=== PATIENT | female | born 1975 | race Hispanic/Latino ===

== ENCOUNTER 2020-11-23 19:28 | Emergency (ER) | payer OTHER, SELFPAY ==
[2020-11-23 20:03] VITALS: BP 113/71; PULSE 92; RESP 18; TEMP 36.3; O2SAT 97
--- NOTE | 2020-11-23 21:20 | ED.URI ---
HPI - URI/Sore Throat General Chief Complaint: Upper Respiratory Infection Stated Complaint: wants to be tested for COVID Time Seen by Provider: 11/23/20 20:34 Source: patient Mode of arrival: ambulatory Limitations: no limitations History of Present Illness HPI Narrative: Patient is a 45 year old female who presents requesting Covid testing. Patient reports cough and rhinorrhea x 1 day. She reports positive exposure to Covid 2 days ago while at family gathering. She denies chest pain, denies shortness of breath. Patient reports she is not vaccinated for Covid at this time. MD elicited complaint: cough and rhinorrhea Review of Systems Review of Systems: Narrative: CONSTITUTIONAL: Denies fever, chills, or sweats. EYES: Denies visual changes, redness, or discharge. ENT: Reports rhinorrhea CARDIOVASCULAR: Denies chest pain, palpitations, or edema. RESPIRATORY: Reports cough, denies shortness of breath GASTROINTESTINAL: Denies abdominal pain, nausea, vomiting, or diarrhea. GENITOURINARY: Denies dysuria or hematuria. SKIN: Denies rash or itching. MUSCULOSKELETAL: Denies back pain, joint pain, or myalgia. NEUROLOGIC: Denies headache, numbness, dizziness, or weakness. PSYCHIATRIC: Denies anxiety or depression. [facility] Past Medical History Medical History No significant past medical history Surgical History Surgical History H/O: Family History Family History (Updated 11/23/20 @ 21:23 by JUNIOR Arita) Other No significant family history Social History Social History (Updated 11/23/20 @ 21:23 by JUNIOR Arita) Smoking status: Current every day smoker Tobacco type: cigarettes Alcohol intake: never Substance use: never Living arrangements: with family Comments At the time of signature, I have reviewed and agree with nursing past medical, surgical, social, and family history unless otherwise noted. Please see nursing chart for further information. There is no relevant family history pertinent to the presenting complaint. Exam Narrative: Exam Narrative: GENERAL: Well-appearing, well-nourished, and in no acute distress. HEAD: Normocephalic, atraumatic. EYES: EOMI. No redness or drainage. Conjunctiva are normal. ENT: Mucous membranes pink and moist. Nares clear. No rhinorrhea. Throat normal. Uvula midline. CHEST: No respiratory distress. Clear to auscultation. HEART: Regular rate and rhythm. No murmur appreciated. Normal peripheral pulses. EXTREMITIES: Normal range of motion. No edema. SKIN: Warm, dry, no rash. NEURO: No focal deficits. Alert and oriented x3. Gait steady. PSYCH: Normal affect. No signs of depression or anxiety. Course Vital Signs Vital signs: Vital Signs Temperature 36.3 C L 11/23/20 20:03 Pulse Rate 92 11/23/20 20:03 Respiratory Rate 18 11/23/20 20:03 Blood Pressure 113/71 11/23/20 20:03 Pulse Oximetry 97 11/23/20 20:03 Temperature 36.3 C L 11/23/20 20:03 Pulse Rate 92 11/23/20 20:03 Respiratory Rate 18 11/23/20 20:03 Blood Pressure 113/71 11/23/20 20:03 Pulse Oximetry 97 11/23/20 20:03 Reviewed MDM - URI/Sore Throat MDM Narrative Medical decision making narrative: Covid PCR sent at this time. Discussed with patient when results will be received as well as quarantine and follow-up. Patient is aware of quarantine and will follow up with referred PCP on Thursday. Patient is stable for discharge to home with outpatient follow-up as needed. Differential Diagnosis Differential diagnosis: Likely upper respiratory infection, sinusitis, viral infection, bronchitis, pharyngitis and other (Covid) Lab Data Labs: Lab Results 11/23/20 Range/Units 21:03 SARS-CoV-2 RNA (RT-PCR) Pending Critical Care Time Critical Care Time Critical Care Time: No Discharge Plan Discharge Clinical Impression: Encounter
[2020-11-24 19:55] LABS: SARS-CoV-2 RNA PCR Negative
== END 2020-11-23 21:39 | disposition home or self-care (01) ==
PROVIDERS: Emergency Provider Nurse Practitioner
DX: R05 Cough (principal); J34.89 Other specified disorders of nose and nasal sinuses; Z20.822 Contact with and (suspected) exposure to COVID-19
CPT/HCPCS: 99283; C9803; U0003; U0005

== ENCOUNTER 2021-02-11 21:15 | Emergency (ER) | payer OTHER, SELFPAY ==
[2021-02-11 21:17] VITALS: BP 129/74; PULSE 86; RESP 16; TEMP 36.6; O2SAT 98
[2021-02-11 23:13] LABS: Add Urine Microscopic? NO; Appearance Urine Clear (Clear); Bilirubin Urine Negative (Negative); Blood Urine Negative (Negative); Color Urine Yellow (Yellow); Glucose Urine UA Negative (Negative); Ketones Urine Negative (Negative); Leukocyte Esterase Ur Negative LEU/UL (Negative); Nitrate Urine Negative (Negative); Protein Urine Negative (Negative); Specific Grav Ur 1.012 (1.001-1.035); Urobilinogen Urine Negative mg/dL (<2.0)
--- NOTE | 2021-02-12 00:33 | ED.FEMALEGU ---
HPI - Female Genitourinary General Chief complaint: Urogenital-Female Stated complaint: i think i have a uti, earache and blisters on tong Time Seen by Provider: 02/12/21 00:04 Source: patient Mode of arrival: ambulatory Limitations: no limitations History of Present Illness HPI Narrative: Patient is 45 years old white female complaining of smelly urine for the last 24 hours also noticed some blisters on her tongue. Patient denies any fever, chills, nausea, vomiting, abdominal pain, back pain, headache, vaginal bleeding or discharge, urinary frequency or urgency or burning sensation Review of Systems Review of Systems: CONSTITUTIONAL: Denies fever, chills, or sweats. EYES: Denies visual changes, redness, or discharge. ENT: Denies rhinorrhea, congestion, sore throat, or otalgia. CARDIOVASCULAR: Denies chest pain, palpitations, or edema. RESPIRATORY: Denies cough or dyspnea. GASTROINTESTINAL: Denies abdominal pain, nausea, vomiting, or diarrhea. GENITOURINARY: Denies dysuria or hematuria. SKIN: Denies rash or itching. MUSCULOSKELETAL: Denies back pain, joint pain, or myalgia. NEUROLOGIC: Denies headache, numbness, or weakness. PSYCHIATRIC: Denies anxiety or depression. PMFSH Past Medical History Medical History No significant past medical history Surgical History Surgical History H/O: Family History Family History Other No significant family history Social History Social History Smoking status: Current every day smoker Tobacco type: cigarettes Alcohol intake: never Substance use: never Gender identity (if verbalized by the patient): Female Exam Narrative: General appearance: Well-developed, well-nourished Skin: Normal color Head: Normocephalic, nontraumatic Eyes: Clear conjunctiva ENT: Oropharynx normal, ears normal, nose normal, 2 blisters on the top of the thigh, 2 mm each. No lymphadenopathy, no oropharyngeal erythema or discharge Neck: Supple, nontender Chest and respiratory: Airway patent, no respiratory distress, no accessory muscle use Heart: Regular rate/rhythm Abdomen: Soft, nontender, no organomegaly, quiet bowel sounds Vascular: Normal peripheral pulses, normal capillary refill. Musculoskeletal: Normal range of motion, nontender back Neurologic: Alert and oriented ?3, [employer] is normal as tested, no gross motor deficit Course Course Emergency Course: Stable Vital Signs Vital signs: Vital Signs Temperature 36.6 C 02/11/21 21:17 Pulse Rate 86 02/11/21 21:17 Respiratory Rate 16 02/11/21 21:17 Blood Pressure 129/74 02/11/21 21:17 Pulse Oximetry 98 02/11/21 21:17 Temperature 36.6 C 02/11/21 21:17 Pulse Rate 86 02/11/21 21:17 Respiratory Rate 16 02/11/21 21:17 Blood Pressure 129/74 02/11/21 21:17 Pulse Oximetry 98 02/11/21 21:17 MDM - Female Genitourinary MDM Narrative Medical decision making narrative: Patient presents with smelly urine. UTI is my concern. Patient denies any vaginal bleeding or discharge. Urine analysis showed no abnormalities. Patient is obese smelly urine could be related to poor hygienic condition. Lab Data Labs: Lab Results 02/11/21 Range/Units 23:00 Urine Color Yellow (Yellow) Urine Appearance Clear (Clear) Urine pH 6.0 (5.0-9.0) Ur Specific [place] 1.012 (1.001-1.035) Urine Protein Negative (Negative) mg/dL Urine Glucose (UA) Negative (Negative) mg/dL Urine Ketones Negative (Negative) mg/dL Ur Blood (Man
[2021-02-12 00:49] VITALS: BP 122/78; PULSE 78; RESP 18; O2SAT 98
--- NOTE | 2021-03-02 20:39 | PC.NURSE ---
LATE ENTRY This note is being entered to document information to the patient's record. The following information was omitted on [02-11-2022], by [DORON Davey]. Preg test completed. Preg test was negative.
== END 2021-02-12 00:49 | disposition home or self-care (01) ==
PROVIDERS: Emergency Provider Emergency Medicine
DX: R82.998 Other abnormal findings in urine (principal); F17.210 Nicotine dependence, cigarettes, uncomplicated
CPT/HCPCS: 81003; 81025; 99283

== ENCOUNTER 2021-04-06 20:07 | Emergency (ER) | payer OTHER, SELFPAY ==
[2021-04-06 20:48] VITALS: BP 125/81; PULSE 86; RESP 17; TEMP 36.6; O2SAT 100
--- NOTE | 2021-04-06 22:32 | ED.SKABFB ---
HPI - Skin/Abscess/Foreign Bdy General Chief complaint: Skin/Abscess/Foreign Body Stated complaint: Yeast infection? Time Seen by Provider: 04/06/21 21:08 History of Present Illness HPI narrative: Patient is a 45-year-old female who presents ER with drainage from her skin fold below her belly. She reports it was oozing over the last day and was malodorous. She has been keeping it clean today. No fever chills or sweats. No previous history of drainage in this area. No recent surgeries. Related Data Allergies Allergy/AdvReac Type Severity Reaction Status Date / Time meperidine [From Demerol] Allergy Itching Verified 04/06/21 20:53 morphine Allergy Anaphylactic Verified 04/06/21 20:53 Shock Review of Systems Constitutional: Constitutional: Denies chills, Denies fever(s) and Denies weakness Gastrointestinal: Gastrointestinal: Denies abdominal pain, Denies nausea and Denies vomiting Integumentary/Breasts: Skin/Breast: Reports erythema, Denies rash and Denies skin ulcer PMFSH Past Medical History Medical History No significant past medical history Surgical History Surgical History H/O: Family History Family History Other No significant family history Social History Social History Smoking status: Current every day smoker Tobacco type: cigarettes Alcohol intake: never Substance use: never Gender identity (if verbalized by the patient): Female Exam Narrative: GENERAL: Well-appearing, well-nourished, and in no acute distress. HEAD: Normocephalic, atraumatic. ABDOMEN: Soft, nontender, nondistended. EXTREMITIES: Normal range of motion. No edema. SKIN: Warm, dry, no rash. Area of interest is the right side of her lower abdominal skin fold and there is a small subcentimeter area per there is some skin breakdown. No surrounding cellulitis. No serous or purulent drainage. NEURO: No focal deficits. Alert and oriented x3. PSYCH: Normal mood and affect. Course Course Emergency Course: Suspect patient had a ruptured skin cyst or abscess or ingrown hair that is essentially resolved. Discussed she can apply triple antibiotic if need be. Vital Signs Vital signs: Vital Signs Temperature 97.8 F 04/06/21 20:48 Pulse Rate 86 04/06/21 20:48 Respiratory Rate 17 04/06/21 20:48 Blood Pressure 125/81 04/06/21 20:48 Pulse Oximetry 100 04/06/21 20:48 Temperature 97.8 F 04/06/21 20:48 Pulse Rate 86 04/06/21 20:48 Respiratory Rate 17 04/06/21 20:48 Blood Pressure 125/81 04/06/21 20:48 Pulse Oximetry 100 04/06/21 20:48 Discharge Plan Discharge Clinical Impression: Skin irritation Patient Disposition: Home, Self-Care Condition: Stable Additional Instructions: You may have had an ingrown hair or small cyst that spontaneously drained. There is no evidence of infection at this time but you may apply [id number] triple antibiotic for the next couple days to help prevent any secondary infection that could develop. Follow-up/Referrals: Yulissa Morales MD [Physician] - 1 Week PHYSICIAN,[facility] [Primary Care Provider] -
[2021-04-06 22:58] VITALS: BP 130/82; PULSE 74; RESP 18; O2SAT 99
== END 2021-04-06 22:59 | disposition home or self-care (01) ==
PROVIDERS: Emergency Provider Emergency Medicine
DX: L98.8 Other specified disorders of the skin and subcutaneous tissue (principal); F17.210 Nicotine dependence, cigarettes, uncomplicated
CPT/HCPCS: 99281

== ENCOUNTER 2021-11-09 03:20 | Emergency (ER) | payer OTHER, SELFPAY ==
[2021-11-09 03:33] VITALS: BP 118/83; PULSE 91; RESP 18; TEMP 36.6; O2SAT 98
[2021-11-09 04:40] VITALS: O2SAT 100
[2021-11-09] MEDS: AMOXICILLIN/CLAVULANATE K 875-125 MG TAB 1 TABLET PO (04:45)
--- NOTE | 2021-11-09 05:09 | ED.GENADULT ---
HPI - General Adult General Chief complaint: Upper Respiratory Infection Stated complaint: Sore throat, cough, earache Time Seen by Provider: 11/09/21 04:05 History of Present Illness HPI narrative: Patient is a 46-year-old female who presents to the emergency department with chief complaint of cough sore throat and right ear pain. Patient states that she has been feeling sick for the last day or 2 has not been vaccinated for COVID reports that her right ear is hurting and reports that her left ear she has crackling whenever she swallows. Patient states she is got a scratchy throat with that states is not improved by anything nor is it worsened by anything. Related Data Allergies Allergy/AdvReac Type Severity Reaction Status Date / Time meperidine [From Demerol] Allergy Itching Verified 04/06/21 20:53 morphine Allergy Anaphylactic Verified 04/06/21 20:53 Shock Review of Systems Review of Systems: A 10 system review of systems was completed on the patient and is negative except for what is stated in the HPI. Nursing and ancillary documentation was reviewed. PMFSH Past Medical History Medical History No significant past medical history Surgical History Surgical History H/O: Family History Family History Other No significant family history Social History Social History Smoking status: Current every day smoker Tobacco type: cigarettes Alcohol intake: never Substance use: never Gender identity (if verbalized by the patient): Female Exam Narrative: GENERAL: Well-appearing, well-nourished, and in no acute distress. HEAD: Normocephalic, atraumatic. EYES: PERRLA and EOMI. ENT: Nares clear, no rhinorrhea or epistaxis. Mucous membranes moist. There is erythema of the right membrane NECK: Supple. CHEST: Clear to auscultation. No respiratory distress. HEART: Regular rate and rhythm. No murmur heard. Normal peripheral pulses. ABDOMEN: Soft, nontender, nondistended, normal active bowel sounds. EXTREMITIES: Normal range of motion. No edema. SKIN: Warm, dry, no rash. NEURO: No focal deficits. Alert and oriented x3. PSYCH: Normal mood and affect. Course Vital Signs Vital signs: Vital Signs Temperature 36.6 C 11/09/21 03:33 Pulse Rate 91 11/09/21 03:33 Respiratory Rate 18 11/09/21 03:33 Blood Pressure 118/83 11/09/21 03:33 Pulse Oximetry 98 11/09/21 03:33 Temperature 36.6 C 11/09/21 03:33 Pulse Rate 91 11/09/21 03:33 Respiratory Rate 18 11/09/21 03:33 Blood Pressure 118/83 11/09/21 03:33 Pulse Oximetry 100 11/09/21 04:40 Medical Decision Making Vital Signs Vital Signs: Vital Signs Temperature 36.6 C 11/09/21 03:33 Pulse Rate 91 11/09/21 03:33 Respiratory Rate 18 11/09/21 03:33 Blood Pressure 118/83 11/09/21 03:33 Pulse Oximetry 98 11/09/21 03:33 Temperature 36.6 C 11/09/21 03:33 Pulse Rate 91 11/09/21 03:33 Respiratory Rate 18 11/09/21 03:33 Blood Pressure 118/83 11/09/21 03:33 Pulse Oximetry 100 11/09/21 04:40 Lab Data Labs: Lab Results 11/09/21 Range/Units 04:44 SARS-CoV-2 RNA (RT-PCR) Negative Influenza A Screen Negative Reference Range: Negative Influenza B Screen Negative Reference Range: Negative Discharge Plan Discharge Clinical Impression: Acute right otitis media Patient Disposition: Home, Self-Care Condition: Stable Instructions: Antibiotic Form, Ear Infection (ED) Prescriptions: New amoxicillin-pot clavulanate 875-125 mg tablet 1 tablet PO Q12H Qty: 20 RF: 0 benzonatate 200 mg ca
[2021-11-09 05:40] LABS: SARS-CoV-2 RNA PCR Negative
[2021-11-09 06:16] VITALS: BP 115/67; PULSE 87; RESP 18; O2SAT 100
== END 2021-11-09 06:16 | disposition home or self-care (01) ==
PROVIDERS: Emergency Provider Emergency Medicine
DX: H66.91 Otitis media, unspecified, right ear (principal); Z28.310 Unvaccinated for COVID-19; F17.210 Nicotine dependence, cigarettes, uncomplicated
CPT/HCPCS: 87804; 99283; A9270; C9803; U0003; U0005

== ENCOUNTER 2024-02-10 00:16 | Emergency (ER) | payer MEDICAID, SELFPAY ==
[2024-02-10 00:19] VITALS: BP 148/71; PULSE 87; RESP 20; TEMP 37; O2SAT 96
--- NOTE | 2024-02-10 00:59 | ED.GENADULT ---
HPI - General Adult General Chief complaint: Dental/Oral Stated complaint: ear pain Time Seen by Provider: 02/10/24 00:58 Source: patient Mode of arrival: ambulatory Limitations: no limitations History of Present Illness HPI narrative: this is a 48-year-old female who presents to the ED for chief complaint of right-sided dental pain for the past 24 hours. Reports that the pain radiates into the right ear and right side of the face. States that she has had an abscess to the gum that burst on its own. Endorses mild swelling to the right jaw. Denies trismus, drooling, fevers, chills, nausea, vomiting Related Data Allergies Allergy/AdvReac Type Severity Reaction Status Date / Time meperidine [From Demerol] Allergy Itching Verified 04/06/21 20:53 morphine Allergy Anaphylactic Verified 04/06/21 20:53 Shock Review of Systems Review of Systems: All systems as dictated in HPI PMFSH Past Medical History Medical History No significant past medical history Surgical History Surgical History H/O: Family History Family History Other No significant family history Social History Social History Smoking status: Current every day smoker Tobacco type: cigarettes Alcohol intake: never Substance use: never Living arrangements: with family Gender identity (if verbalized by the patient): Female Exam Narrative: GENERAL: Well-appearing, well-nourished, and in no acute distress. HEAD: Normocephalic, atraumatic. EYES: PERRLA and EOMI. ENT: Poor dentition throughout. No palpable or discrete abscess. Multiple caries noted no trismus or drooling. Nares clear, no rhinorrhea or epistaxis. Mucous membranes moist. Floor of the mouth intact. NECK: Supple. No adenopathy or masses. CHEST: No respiratory distress. Clear to auscultation. No wheezes rales or rhonchi HEART: Regular rate and rhythm. No murmur heard. Normal peripheral pulses. ABDOMEN: Soft, nontender, nondistended, normal active bowel sounds. MSK: Normal range of motion. No edema. SKIN: Warm, dry, no rash. NEURO: Alert and oriented x4. No focal deficits. PSYCH: Normal mood and affect. Course Vital Signs Vital signs: Vital Signs Temperature 98.6 F 02/10/24 00:19 Pulse Rate 87 02/10/24 00:19 Respiratory Rate 20 02/10/24 00:19 Blood Pressure 148/71 H 02/10/24 00:19 Pulse Oximetry 96 02/10/24 00:19 Oxygen Delivery Room Air 02/10/24 00:19 Temperature 98.6 F 02/10/24 00:19 Pulse Rate 87 02/10/24 00:19 Respiratory Rate 20 02/10/24 00:19 Blood Pressure 148/71 H 02/10/24 00:19 Pulse Oximetry 96 02/10/24 00:19 Oxygen Delivery Room Air 02/10/24 00:19 Medical Decision Making MDM Narrative Medical decision making narrative: This is a 48-year-old female who presents to the ED with chief complaint of right-sided dental pain. Vitals are normal. Exam shows mild swelling to the right side of the face. No trismus or red flag signs for deep space infection today. Symptoms and presentation consistent with the diffuse dental caries seen on exam. She probably has developing infection on the right side. Rx for clindamycin given. She is declining any further pain meds here. Dental referral given. Pt will be discharged in stable condition. Return precautions given and supportive measures discussed. Pt is understanding and agreeable with plan for discharge and follow-up with PCP. Vital Signs Vital Signs: Vital Signs Temperature 98.6 F 02/10/24 00:19 Pulse Rate 87 02/10/24 00:19 Respiratory Rate 20 02/10/24 00:19 Blood Pressure 148/71 H 02/10/24 00:19 Pulse Oximetry 96 02/10/24 00:19 Oxygen Delivery Room Air 02/10/24 00:19
[2024-02-10] MEDS: CLINDAMYCIN HCL 150 MG CAP 300 MG PO (01:19)
== END 2024-02-10 01:22 | disposition home or self-care (01) ==
PROVIDERS: Emergency Provider Physician Assistant
DX: K02.9 Dental caries, unspecified (principal); F17.210 Nicotine dependence, cigarettes, uncomplicated
CPT/HCPCS: 99283; A9270

== ENCOUNTER 2024-04-11 00:57 | Emergency (ER) | payer OTHER, SELFPAY ==
[2024-04-11 01:06] VITALS: BP 112/55; PULSE 94; RESP 18; TEMP 36.6; O2SAT 98
[2024-04-11 01:31] LABS: BEDSIDEPREGUCG Negative (Negative)
[2024-04-11 01:36] LABS: Add Urine Microscopic? NO; Appearance Urine Clear (Clear); Bilirubin Urine Negative (Negative); Blood Urine Negative (Negative); Color Urine Yellow (Yellow); Glucose Urine UA Negative (Negative); Ketones Urine Negative (Negative); Leukocyte Esterase Ur Negative LEU/UL (Negative); Nitrate Urine Negative (Negative); Protein Urine Negative (Negative); Specific Grav Ur 1.015 (1.001-1.035); pH Urine 6.5 (5.0-9.0)
--- NOTE | 2024-04-11 01:55 | ED.GENADULT ---
HPI - General Adult General Chief complaint: Urogenital-Female Stated complaint: I think I have a uti and both ears are infected Time Seen by Provider: 04/11/24 01:31 History of Present Illness HPI narrative: Patient 48-year-old female who presents emergency department with chief complaint of bilateral ear pain with the right being worse than the left patient reports she has a crackling sensation in her ears whenever she swallows and reports that she has had urinary frequency. Related Data Allergies Allergy/AdvReac Type Severity Reaction Status Date / Time meperidine [From Demerol] Allergy Itching Verified 04/06/21 20:53 morphine Allergy Anaphylactic Verified 04/06/21 20:53 Shock Review of Systems Review of Systems: A 10 system review of systems was completed on the patient and is negative except for what is stated in the HPI. Nursing and ancillary documentation was reviewed. PMFSH Past Medical History Medical History No significant past medical history Surgical History Surgical History H/O: Family History Family History Other No significant family history Social History Social History Smoking status: Current every day smoker Tobacco type: cigarettes Alcohol intake: never Substance use: never Living arrangements: with family Gender identity (if verbalized by the patient): Female Exam Narrative: GENERAL: Well-appearing, well-nourished, and in no acute distress. HEAD: Normocephalic, atraumatic. EYES: PERRLA and EOMI. ENT: Nares clear, no rhinorrhea or epistaxis. Mucous membranes moist. There is fluid behind the left tympanic membrane the right ear is erythematous and there appears to be an acute otitis media NECK: Supple. CHEST: Clear to auscultation. No respiratory distress. HEART: Regular rate and rhythm. No murmur heard. Normal peripheral pulses. ABDOMEN: Soft, nontender, nondistended, normal active bowel sounds. EXTREMITIES: Normal range of motion. No edema. SKIN: Warm, dry, no rash. NEURO: No focal deficits. Alert and oriented x3. PSYCH: Normal mood and affect. Course Vital Signs Vital signs: Vital Signs Temperature 36.6 C 04/11/24 01:06 Pulse Rate 94 04/11/24 01:06 Respiratory Rate 18 04/11/24 01:06 Blood Pressure 112/55 L 04/11/24 01:06 Pulse Oximetry 98 04/11/24 01:06 Oxygen Delivery Room Air 04/11/24 01:06 Temperature 36.6 C 04/11/24 01:06 Pulse Rate 94 04/11/24 01:06 Respiratory Rate 18 04/11/24 01:06 Blood Pressure 112/55 L 04/11/24 01:06 Pulse Oximetry 98 04/11/24 01:06 Oxygen Delivery Room Air 04/11/24 01:06 Medical Decision Making MDM Narrative Medical decision making narrative: Differential diagnosis includes upper respiratory infection, otitis media, UTI Urinalysis showed no evidence UTI Patient clinically had a ear infection was started on cefdinir Vital Signs Vital Signs: Vital Signs Temperature 36.6 C 04/11/24 01:06 Pulse Rate 94 04/11/24 01:06 Respiratory Rate 18 04/11/24 01:06 Blood Pressure 112/55 L 04/11/24 01:06 Pulse Oximetry 98 04/11/24 01:06 Oxygen Delivery Room Air 04/11/24 01:06 Temperature 36.6 C 04/11/24 01:06 Pulse Rate 94 04/11/24 01:06 Respiratory Rate 18 04/11/24 01:06 Blood Pressure 112/55 L 04/11/24 01:06 Pulse Oximetry 98 04/11/24 01:06 Oxygen Delivery Room Air 04/11/24 01:06 Lab Data Labs: Lab Results 04/11/24 04/11/24 Range/Units 01:28 01:29 Urine Color Yellow (Yellow) Urine Appearance Clear (Clear) Urine pH 6.5 (5.0-9.0) Ur Specific [place] 1.015 (1.001-1.035) Urine Protein Negative (Negative) mg/dL Urine Glucose (UA) Negativ
[2024-04-11] MEDS: CEFDINIR 300 MG CAPSULE PO (02:21)
== END 2024-04-11 02:25 | disposition home or self-care (01) ==
PROVIDERS: Emergency Provider Emergency Medicine
DX: H66.91 Otitis media, unspecified, right ear (principal); F17.210 Nicotine dependence, cigarettes, uncomplicated
CPT/HCPCS: 81003; 81025; 99283; A9270

== ENCOUNTER 2024-05-02 00:09 | Emergency (ER) | payer OTHER, SELFPAY ==
[2024-05-02 00:22] VITALS: BP 132/68; PULSE 90; RESP 18; TEMP 36.4; O2SAT 97
--- NOTE | 2024-05-02 00:34 | PC.NURSE ---
pt actively eating beef jerky bites during triage.
[2024-05-02 00:48] LABS: Basophils Percent Auto 0.2 % (0.2-1.2); Eosinophils Absolute Auto 0.1 K/mm3 (0-0.3); Eosinophils Percent Auto 0.6 % (0-4.4); Hematocrit 44.6 % (37.0-47.0); Hemoglobin 14.5 g/dL (12.0-15.0); Immature Granulocyte Absolute 0.11 K/mm3 (0.00-0.031); Immature Granulocyte Percent A 0.8 % (0-0.5); Lymphocytes Absolute Auto 2.69 K/mm3 (0.9-3.2); Lymphocytes Percent Auto 19.2 % (18.3-44.2); Mean Corpuscular HGB Conc 32.5 g/dl (32-36); Mean Corpuscular Hemoglobin 28.8 pg (26-34); Mean Corpuscular Volume 88.5 fl (80-100); Mean Platelet Volume 10.4 fl (7.4-10.4); Monocytes Absolute Auto 0.8 K/mm3 (0.1-0.6); Monocytes Percent Auto 5.8 % (2.6-8.5); Neutrophils Absolute Auto 10.3 K/mm3 (1.3-6.7); Neutrophils Percent Auto 73.4 % (45.5-73.1); Platelet Count Result 240 k/mm3 (150-375); Red Blood Count 5.04 M/mm3 (4.2-5.4); Red Cell Distribution Width 13.7 % (11.5-14.5)
[2024-05-02 00:56] LABS: Add Urine Microscopic? YES; Appearance Urine Clear (Clear); Bacteria Urine None Seen /hpf; Bilirubin Urine Negative (Negative); Blood Urine Negative (Negative); Color Urine Yellow (Yellow); Glucose Urine UA Negative (Negative); Ketones Urine Negative (Negative); Leukocyte Esterase Ur 1+ LEU/UL (Negative); Nitrate Urine Negative (Negative); Non Pathogenic Casts 0-2; Protein Urine Negative (Negative); RBC Urine 0-2 /hpf (0-2); Specific Grav Ur 1.007 (1.001-1.035); Squamous Epithelial Cell Urine Occasional /hpf (Few); Urobilinogen Urine 0.2 mg/dL (<2.0); pH Urine 6.5 (5.0-9.0)
[2024-05-02 00:58] LABS: Alanine Aminotransferase 13 U/L (6-35); Albumin Level 4.1 g/dL (3.5-5.1); Alkaline Phosphatase 124 U/L (38-126); Anion Gap 7 mmol/L (4-12); Aspartate Amino Transferase 16 U/L (14-36); Bilirubin,Total 0.5 mg/dL (0.2-1.3); Blood Urea Nitrogen 6 mg/dL (7-17); Calcium 9.2 mg/dL (8.4-10.2); Carbon Dioxide 31 mmol/L (22-30); Chloride 101 mmol/L (98-107); Estimated Glomerular Filt Rate > 60; Glucose 111 mg/dL (65-110); Lipase 82 U/L (23-300); Potassium 4.1 mmol/L (3.4-5.0); Sodium 139 mmol/L (137-145)
--- NOTE | 2024-05-02 01:07 | ED.FEMALEGU ---
HPI - Female Genitourinary General Chief complaint: Urogenital-Female Stated complaint: uti or kidney infection Time Seen by Provider: 05/02/24 01:03 Source: patient Mode of arrival: ambulatory Limitations: no limitations History of Present Illness HPI Narrative: Patient presents with concern for a UTI or kidney infection. She started having dysuria last night which is now going into her bilateral back. Triage note mentioned abdominal pain but patient denies this. No pain medications taken at home because she only experiences pain with urination. She tried cranberry juice and pineapple juice. Patient notes she drinks a significant amount of caffeinated soda daily: 6 cans of regular Pepsi daily. History of UTIs but denies history of pyelonephritis or kidney stone. Does not follow with a urologist. No fevers/chills, nausea/vomiting. No hematuria but she is having urinary urgency and frequency. States she has had yeast infections before as well but says this feels different, no pruritis and not a constant burning, only with urination. Not sexually active. No vaginal discharge or vaginal bleeding. LMP last month; soon to start this cycle. LBM this morning, no diarrhea, constipation, blood. Related Data Allergies Allergy/AdvReac Type Severity Reaction Status Date / Time meperidine [From Demerol] Allergy Itching Verified 04/06/21 20:53 morphine Allergy Anaphylactic Verified 04/06/21 20:53 Shock PMFSH Past Medical History Medical History History of UTI No significant past medical history Yeast infection involving the vagina and surrounding area Surgical History Surgical History H/O: Family History Family History Other No significant family history Social History Social History Smoking status: Current every day smoker Tobacco type: cigarettes Alcohol intake: never Substance use: never Other substance usage details: 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 HEAD: Normocephalic, atraumatic. EYES: Non injected, non icteric ENT: Nares clear, no rhinorrhea or epistaxis. Poor dentition. NECK: Supple. CHEST: Speaking in full sentences. No respiratory distress. HEART: Regular rate and rhythm. . ABDOMEN: Soft, nondistended. /BACK: No CVA tenderness bilaterally. EXTREMITIES: Normal range of motion. No lower extremity edema. SKIN: Warm, dry, no rash. NEURO: No focal deficits. Alert and oriented x3. PSYCH: Normal mood and affect. Course Vital Signs Vital signs: Vital Signs Temperature 97.5 F L 05/02/24 00:22 Pulse Rate 90 05/02/24 00:22 Respiratory Rate 18 05/02/24 00:22 Blood Pressure 132/68 05/02/24 00:22 Pulse Oximetry 97 05/02/24 00:22 Temperature 97.5 F L 05/02/24 00:22 Pulse Rate 87 05/02/24 01:59 Respiratory Rate 16 05/02/24 01:59 Blood Pressure 136/80 05/02/24 01:59 Pulse Oximetry 98 05/02/24 01:59 MDM - Female Genitourinary MDM Narrative Medical decision making narrative: Patient presents with dysuria concerning for UTI. In the ED she is afebrile with VS within normal limits. Urinalysis with no bacteria noted but with some white blood cells and leukocyte esterase positive. In the setting of symptoms of dysuria and increased urinary frequency, will treat as a urinary tract infection and, will extend antibiotic course treating for a pyelonephritis given pain is radiating to flanks although patient is without fever, nausea, vomiting, or CVA tenderness on exam. Given first dose in the ED with the rest of course prescribed. No previous culture to guide antibiotic therapy. Given she has pain with urination, will also prescribe phenazopyridine. She was Warned of discoloration of urine and tears and not to wear contact lens due to risk of staining. Discharged in stable condition. Provided PCP referral contact information as well. Differential Diagnosis Differential diagnosis: Likely urinary tract infection (pyelonephritis), bacterial vaginosis, cervicitis, vaginitis and cystitis Medical Records Attestation: I reviewed the patient's medical records. Medical records narrative: No previous culture per review of EMR Lab Data Attestation: I reviewed the patient's lab results. Lab results narrative: Leukocytosis 05/02/24 00:39 05/02/24 00:39 Labs: Lab Results 05/02/24 Range/Units 00:39 WBC 14.0 H (4.5-10.0) K/mm3 RBC 5.04 (4.2-5.4) M/mm3 Hgb 14.5 (12.0-15.0) g/dL Hct 44.6 (37.0-47.0) % MCV 88.5 (80-100) fl MCH 28.8 (26-34) pg MCHC 32.5 (32-36) g/dl RDW 13.7 (11.5-14.5) % Plt Count 240 (150-375) k/mm3 MPV 10.4 (7.4-10.4) fl Immature Gran % (Auto) 0.8 H (0-0.5) % Neut % (Auto) 73.4 H (45.5-73.1) % Lymph % (Auto) 19.2 (18.3-44.2) % [place] % (Auto) 5.8 (2.6-8.5) % Eos % (Auto) 0.6 (0-4.4) % Baso % (Auto) 0.2 (0.2-1.2) % Lymph # (Auto) 2.69 (0.9-3.2) K/mm3 [place] # (Auto) 0.8 H (0.1-0.6) K/mm3 Eos # (Auto) 0.1 (0-0.3) K/mm3 Baso # (Auto) 0.0 (0.0-0.1) K/mm3 Abs Immat Gran (auto) 0.11 H (0.00-0.031) K/mm3 Absolute Neuts (auto) 10.3 H (1.3-6.7) K/mm3 Absolute Nucleated RBC 0.000 (0.0-0.012) K/mm3 Nucleated RBC % 0.0 (0.0-0.2) % Sodium 139 (137-145) mmol/L Potassium 4.1 (3.4-5.0) mmol/L Chloride 101 (98-107) mmol/L Carbon Dioxide 31 H (22-30) mmol/L Anion Gap 7 (4-12) mmol/L BUN 6 L (7-17) mg/dL Creatinine 0.60 L (0.7-1.0) mg/dL Estim Creat Clear Calc Not Reportable Estimated GFR > 60 (59 - ) Glucose 111 H (65-110) mg/dL Calcium 9.2 (8.4-10.2) mg/dL Total Bilirubin 0.5 (0.2-1.3) mg/dL AST 16 (14-36) U/L ALT 13 (6-35) U/L Alkaline Phosphatase 124 (38-126) U/L Total Protein 7.0 (6.3-8.2) g/dL Albumin 4.1 (3.5-5.1) g/dL Lipase 82 (23-300) U/L Urine Color Yellow (Yellow) Urine Appearance Clear (Clear) Urine pH 6.5 (5.0-9.0) Ur Specific [place] 1.007 (1.001-1.035) Urine Protein Negative (Negative) mg/dL Urine Glucose (UA) Negative (Negative) mg/dL Urine Ketones Negative (Negative) mg/dL Ur Blood (Man) Negative (Negative) Urine Nitrate Negative (Negative) Urine Bilirubin Negative (Negative) Urine Urobilinogen 0.2 (<2.0) mg/dL Leukocyte Esterase Rfl 1+ H (Negative) GENEVIEVE/UL Urine RBC 0-2 (0-2) /hpf Urine WBC 11-20 H (0-3) /hpf Ur Squamous Epith Cells Occasional (Few) /hpf Urine Bacteria None seen /hpf Urine Casts 0-2 Discharge Plan Discharge Clinical Impression: Dysuria, Leukocytosis Patient Disposition: Home, Self-Care Condition: Stable Instructions: Antibiotic Form, Kidney Infection (ED), Leukocytosis (ED), Dysuria (ED) Additional Instructions: There is suspicion that a urinary tract infection has started to ascend towards your kidneys known as pyelonephritis. the treatment for this is a longer course of antibiotics. You received the 1st dose in the emergency department with rest the course prescribed. You will be notified based on the urine culture this needs to be changed. The phenazopyridine can help with the pain with urination. Be aware it can cause discoloration of urine and tears. Don?t wear contact lens due to risk of staining. Follow-up with primary care physician. If you do not have a minimal the doctors listed below. Return to the emergency department with any new or worsening symptoms such as fever greater than 100.4? F, persistent nausea or vomiting, concern for dehydration, etc. Prescriptions: New phenazopyridine 100 mg tablet 100 mg PO TID PRN (Reason: pain) 2 Days Qty: 5 0RF Rx Instructions: after meals; patient received first dose in ED 05/02/24 sulfamethoxazole-trimethoprim [Bactrim DS] 800-160 mg tablet 1 tablet PO Q12H 14 Days Qty: 27 0RF Rx Instructions: Received first dose in ED 05/02 AM No Action clindamycin HCl 300 mg capsule 300 mg PO Q8H Qty: 21 0RF amoxicillin-pot clavulanate 875-125 mg tablet 1 tablet PO Q12H Qty: 20 0RF benzonatate 200 mg capsule 200 mg PO TID PRN (Reason: cough) Qty: 21 0RF cefdinir 300 mg capsule 300 mg PO Q12H 10 Days Qty: 20 0RF Follow-up/Referrals: James Sylvester MD [Physician] - ( family practice) PHYSICIAN,CASINO ASSISTANT MANAGER [Primary Care Provider] - Stand Alone Forms: Work/School Release IP Time of Disposition: 01:36
[2024-05-02] MEDS: PHENAZOPYRIDINE HCL 100 MG TABLET PO (01:54)
[2024-05-02] MEDS: SULFAMETHOXAZOLE/TRIMETHOPRIM 800/160 MG DS TABLET 1 TAB PO (01:54)
[2024-05-02 01:59] VITALS: BP 136/80; PULSE 87; RESP 16; O2SAT 98
== END 2024-05-02 02:00 | disposition home or self-care (01) ==
PROVIDERS: Emergency Provider Student in an Organized Health Care Education/Training Program
DX: R30.0 Dysuria (principal); D72.829 Elevated white blood cell count, unspecified; F17.210 Nicotine dependence, cigarettes, uncomplicated; Z87.440 Personal history of urinary (tract) infections
CPT/HCPCS: 36415; 80053; 81001; 83690; 85025; 87086; 99283; A9270

== ENCOUNTER 2024-08-03 10:54 | Emergency (ER) | payer OTHER, SELFPAY ==
[2024-08-03 11:05] VITALS: BP 127/71; PULSE 98; RESP 16; TEMP 36.5; O2SAT 96
--- OUTSIDE RECORDS SUMMARY | 2024-08-03 12:08 | XMS_ITS | CONTINUITY OF CARE DOCUMENT ---
Author Name delisa hercules Address Unknown Organization [facility] Office Address [address] [place] [address] [place] [id number] Phone [phone] Care Team Providers Care Supervisor Coffee Name Role Phone Nader Noriega MD Unavailable [phone] Nader Noriega MD Unavailable [phone] INSURANCE PROVIDERS Payer name Policy type / Coverage type Rachel red green party ID [place] [employer]ICA[employer] (2) Medicaid [id number]
--- NOTE | 2024-08-03 13:51 | ED.GENADULT ---
HPI - General Adult General Chief complaint: Upper Respiratory Infection Stated complaint: cough, ear discomfort Time Seen by Provider: 08/03/24 12:37 History of Present Illness HPI narrative: 48-year-old female presenting cough and ear pain. Patient has a sick grandchild home with URI symptoms. Fevers 101 at home. Patient denies sore throat chest pain difficulty breathing abdominal pain nausea vomiting diarrhea. Related Data Allergies Allergy/AdvReac Type Severity Reaction Status Date / Time meperidine (From Demerol) Allergy Itching Verified 04/06/21 20:53 morphine Allergy Anaphylactic Verified 04/06/21 20:53 Shock [facility] Past Medical History Medical History History of UTI No significant past medical history Yeast infection involving the vagina and surrounding area Surgical History Surgical History H/O: Family History Family History Other No significant family history Social History Social History Smoking status: Current every day smoker Tobacco type: cigarettes Alcohol intake: never Substance use: never Other substance usage details: 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 Well-appearing Head: atraumatic. TMs normal, posterior pharynx normal EYES: EOMI, NOSE: Atraumatic NECK: Trachea midline RESPIRATORY: No increased rate of breathing CTAB CARDIOVASCULAR: RRR, no peripheral edema ABDOMINAL: Non-distended soft nontender MUSCULOSKELETAl: No obvious deformities NEURO: Alert. Moving 4/4 extremities SKIN:: Warm, dry. Normal color PSYCHIATRIC: Normal affect Course Vital Signs Vital signs: Vital Signs Temperature 97.7 F 08/03/24 11:05 Pulse Rate 98 08/03/24 11:05 Respiratory Rate 16 08/03/24 11:05 Blood Pressure 127/71 08/03/24 11:05 Pulse Oximetry 96 08/03/24 11:05 Oxygen Delivery Room Air 08/03/24 11:05 Temperature 97.7 F 08/03/24 11:05 Pulse Rate 98 08/03/24 11:05 Respiratory Rate 16 08/03/24 11:05 Blood Pressure 127/71 08/03/24 11:05 Pulse Oximetry 96 08/03/24 11:05 Oxygen Delivery Room Air 08/03/24 12:28 Medical Decision Making MDM Narrative Medical decision making narrative: -Course: 48-year-old presenting with URI symptoms. Viral swabs strep and mono were negative. However her daughter has RSV so possibly a false negative. Regardless she will be treated with Motrin Tylenol discharge. Given return precautions -DDX includes but is not limited to: Viral syndrome COVID RSV flu restroom Vital Signs Vital Signs: Vital Signs Temperature 97.7 F 08/03/24 11:05 Pulse Rate 98 08/03/24 11:05 Respiratory Rate 16 08/03/24 11:05 Blood Pressure 127/71 08/03/24 11:05 Pulse Oximetry 96 08/03/24 11:05 Oxygen Delivery Room Air 08/03/24 11:05 Temperature 97.7 F 08/03/24 11:05 Pulse Rate 98 08/03/24 11:05 Respiratory Rate 16 08/03/24 11:05 Blood Pressure 127/71 08/03/24 11:05 Pulse Oximetry 96 08/03/24 11:05 Oxygen Delivery Room Air 08/03/24 12:28 Lab Data Labs: Lab Results 08/03/24 Range/Units 13:24 Monoscreen Negative (Negative) Influenza A (RT-PCR) Negative (Negative) Influenza B (RT-PCR) Negative (Negative) RSV (RT-PCR) Negative (Negative) SARS-CoV-2 RNA (RT-PCR) Negative (Negative) Group A Strep (PCR) Not detected (Negative) Discharge Plan Discharge Clinical Impression: Upper respiratory infection Patient Disposition: Home, Self-Care Condition: Stable Instructions: Antibiotic Form, Cold Symptoms (ED) Additional Instructions: Take Motrin Tylenol for cold symptoms. Follow-up with primary care physician. Return if develop any new or worsening symptoms. Patient Language: Portuguese Prescriptions: No Action clindamycin HCl 300 mg capsule 300 mg PO Q8H Qty: 21 0RF phenazopyridine 100 mg tablet 100 mg PO TID PRN (Reason: pain) 2 Days Qty: 5 0RF Rx Instructions: after meals; patient received first dose in ED 05/02/24 sulfamethoxazole-trimethoprim [Bactrim DS] 800-160 mg tablet 1 tablet PO Q12H 14 Days Qty: 27 0RF Rx Instructions: Received first dose in ED 05/02 AM amoxicillin-pot clavulanate 875-125 mg tablet 1 tablet PO Q12H Qty: 20 0RF benzonatate 200 mg capsule 200 mg PO TID PRN (Reason: cough) Qty: 21 0RF cefdinir 300 mg capsule 300 mg PO Q12H 10 Days Qty: 20 0RF Follow-up/Referrals: UNKNOWN,DOCTOR [Primary Care Provider] - Stand Alone Forms: Work/School Release IP
[2024-08-03 13:57] LABS: Strep Group A RT-PCR NOT DETECTED (Negative)
[2024-08-03 14:01] LABS: Monoscreen Negative (Negative); Negative Monotest Control Negative (Negative); Positive Monotest Control Positive (Positive)
[2024-08-03 14:07] LABS: Influenza A QL RT-PCR Negative (Negative); Influenza B QL RT-PCR Negative (Negative); RSV RNA, RT-PCR Negative (Negative); SARS-CoV-2 RNA PCR Negative (Negative)
[2024-08-03] MEDS: ACETAMINOPHEN 500 MG TABLET 1000 MG PO (14:22)
[2024-08-03] MEDS: IBUPROFEN 400 MG TABLET 800 MG PO (14:22)
== END 2024-08-03 15:14 | disposition home or self-care (01) ==
PROVIDERS: Emergency Provider Emergency Medicine
DX: J06.9 Acute upper respiratory infection, unspecified (principal); Z20.822 Contact with and (suspected) exposure to COVID-19; F17.210 Nicotine dependence, cigarettes, uncomplicated; Z87.440 Personal history of urinary (tract) infections
CPT/HCPCS: 36415; 86308; 87637; 87651; 99283; A9270

== ENCOUNTER 2024-12-06 22:55 | Emergency (ER) | payer OTHER, SELFPAY ==
[2024-12-06 22:58] VITALS: BP 146/82; PULSE 92; RESP 17; TEMP 36.4; O2SAT 98
[2024-12-07 00:50] VITALS: BP 132/79; PULSE 82; RESP 18; TEMP 36.8; O2SAT 99
[2024-12-07 01:31] VITALS: BP 135/76; O2SAT 95
--- NOTE | 2024-12-07 02:15 | PC.NURSE ---
Pt removed vitals from herself.
--- NOTE | 2024-12-07 02:15 | ED_ITS ---
HPI - Dental/Oral General Chief complaint: Dental/Oral Stated complaint: thrush Time Seen by Provider: 12/07/24 01:00 Source: patient Mode of arrival: ambulatory Limitations: no limitations History of Present Illness HPI Narrative: Patient is a 49-year-old female who presents the ED with concern for thrush. Patient reports she noticed some yellow/white discoloration to her tongue and mouth 2 days ago. She complains of burning with eating or drinking. Denies difficulty breathing or swallowing. Denies vomiting. Does also complain of intermittent drainage and foul smell in her lower abdomen along the fold of her pannus. She states this has been intermittent for some time. Reports history of frequent yeast infections. Denies known history of diabetes. Denies fevers. Related Data Allergies Allergy/AdvReac Type Severity Reaction Status Date / Time meperidine (From Demerol) Allergy Itching Verified 12/07/24 00:55 morphine Allergy Anaphylactic Verified 12/07/24 00:55 Shock Review of Systems 2 Review of Systems: All systems reviewed & are unremarkable except as noted in HPI. 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 HEAD: Normocephalic, atraumatic. ENT: Diffuse severe dental decay, numerous dental caries and previous dental extractions. Tongue with diffuse patches of white/yellow material. No posterior pharynx or erythema. No drainage seen on posterior pharynx. Uvula midline and nonedematous. No stridor or trismus. RESPIRATORY: Airway patent, respirations nonlabored. CARDIOVASCULAR: Regular rate and rhythm ABDOMINAL: Soft, nontender, nondistended. Normoactive BS. Chronic healed scar in lower abdomen under pannus with slight erythema, no significant drainage, slight foul yeast odor. MUSCULOSKELETAL: Moves all extremities. No gross deformities. SKIN: Warm, dry, normal color. NEURO: A&O X3. Speech clear. Cranial nerves II-XII grossly intact. Steady gait. No ataxic movements. PSYCHIATRIC: Appropriate mood and affect. Normal interaction. Course Vital Signs Vital signs: Vital Signs Temperature 97.6 F 12/06/24 22:58 Pulse Rate 92 12/06/24 22:58 Respiratory Rate 17 12/06/24 22:58 Blood Pressure 146/82 H 12/06/24 22:58 Pulse Oximetry 98 12/06/24 22:58 Oxygen Delivery Room Air 12/06/24 22:58 Temperature 98.2 F 12/07/24 00:50 Pulse Rate 82 12/07/24 00:50 Respiratory Rate 18 12/07/24 00:50 Blood Pressure 135/76 12/07/24 01:31 Pulse Oximetry 95 12/07/24 01:31 Oxygen Delivery Room Air 12/06/24 22:58 MDM - Dental/Oral MDM Narrative Medical decision making narrative: Patient presented to ED with concern for thrush and intertrigo. Reports history of frequent yeast infection. No known history of diabetes. Exam does appear consistent with thrush and intertrigo. Will treat for such. Discussed obtaining blood work to rule out diabetes given her history. She states it has been several years since she has had blood work done. Patient was agreeable to this, however prior to blood work resulting, patient became irate and demanding to go outside to smoke a cigarette. We advised that we are still waiting on her blood work and patient again became irate about this, requesting to sign out against medical advice. Paperwork was signed. Patient advised of risks, potentially of DKA and . Left the facility in stable condition with a steady gait. Laboratory studies without evidence of DKA, consistent with prediabetes. Prescriptions were sent to pharmacy. Patient left AMA prior to receiving paperwork. Medical Records Attestation: I reviewed the patient's medical records. Lab Data Attestation: I reviewed the patient's lab results. 12/07/24 02:34 12/07/24 02:34 Labs: Lab Results 12/07/24 Range/Units 02:34 WBC 10.0 (4.5-10.0) K/mm3 RBC 4.94 (4.2-5.4) M/mm3 Hgb 13.8 (12.0-15.0) g/dL Hct 43.1 (37.0-47.0) % MCV 87.2 (80-100) fl MCH 27.9 (26-34) pg MCHC 32.0 (32-36) g/dl RDW 13.7 (11.5-14.5) % Plt Count 223 (150-375) k/mm3 MPV 9.8 (7.4-10.4) fl Immature Gran % (Auto) 0.3 (0-0.5) % Neut % (Auto) 61.7 (45.5-73.1) % Lymph % (Auto) 30.0 (18.3-44.2) % [place] % (Auto) 6.5 (2.6-8.5) % Eos % (Auto) 1.2 (0-4.4) % Baso % (Auto) 0.3 (0.2-1.2) % Lymph # (Auto) 2.99 (0.9-3.2) K/mm3 [place] # (Auto) 0.7 H (0.1-0.6) K/mm3 Eos # (Auto) 0.1 (0-0.3) K/mm3 Baso # (Auto) 0.0 (0.0-0.1) K/mm3 Abs Immat Gran (auto) 0.03 (0.00-0.031) K/mm3 Absolute Neuts (auto) 6.2 (1.3-6.7) K/mm3 Absolute Nucleated RBC 0.000 (0.0-0.012) K/mm3 Nucleated RBC % 0.0 (0.0-0.2) % Sodium 138 (137-145) mmol/L Potassium 3.3 L (3.4-5.0) mmol/L Chloride 104 (98-107) mmol/L Carbon Dioxide 29 (22-30) mmol/L Anion Gap 5 (4-12) mmol/L BUN 9 (7-17) mg/dL Creatinine 0.67 L (0.7-1.0) mg/dL Estim Creat Clear Calc Not Reportable Estimated GFR > 60 (59 - ) Glucose 131 H (65-110) mg/dL Hemoglobin A1c 6.2 H (<5.7) % Calcium 8.7 (8.4-10.2) mg/dL Discharge Plan Discharge Clinical Impression: Oral thrush, Intertrigo, Prediabetes Patient Disposition: Left Against Medical Advice Condition: Stable Patient Language: Hebrew Prescriptions: New clotrimazole 1 % cream 1 applic topical BID PRN (Reason: skin irritation) Qty: 15 0RF nystatin 100,000 unit/mL suspension 4 ml PO QID 7 Days Qty: 112 0RF Rx Instructions: swish and swallow No Action clindamycin HCl 300 mg capsule 300 mg PO Q8H Qty: 21 0RF phenazopyridine 100 mg tablet 100 mg PO TID PRN (Reason: pain) 2 Days Qty: 5 0RF Rx Instructions: after meals; patient received first dose in ED 05/02/24 sulfamethoxazole-trimethoprim [Bactrim DS] 800-160 mg tablet 1 tablet PO Q12H 14 Days Qty: 27 0RF Rx Instructions: Received first dose in ED 05/02 AM amoxicillin-pot clavulanate 875-125 mg tablet 1 tablet PO Q12H Qty: 20 0RF benzonatate 200 mg capsule 200 mg PO TID PRN (Reason: cough) Qty: 21 0RF cefdinir 300 mg capsule 300 mg PO Q12H 10 Days Qty: 20 0RF Follow-up/Referrals: UNKNOWN,DOCTOR [Primary Care Provider] -
[2024-12-07 02:42] LABS: Basophils Percent Auto 0.3 % (0.2-1.2); Eosinophils Absolute Auto 0.1 K/mm3 (0-0.3); Eosinophils Percent Auto 1.2 % (0-4.4); Hematocrit 43.1 % (37.0-47.0); Hemoglobin 13.8 g/dL (12.0-15.0); Immature Granulocyte Absolute 0.03 K/mm3 (0.00-0.031); Immature Granulocyte Percent A 0.3 % (0-0.5); Lymphocytes Absolute Auto 2.99 K/mm3 (0.9-3.2); Mean Corpuscular Hemoglobin 27.9 pg (26-34); Mean Corpuscular Volume 87.2 fl (80-100); Mean Platelet Volume 9.8 fl (7.4-10.4); Monocytes Absolute Auto 0.7 K/mm3 (0.1-0.6); Monocytes Percent Auto 6.5 % (2.6-8.5); Neutrophils Absolute Auto 6.2 K/mm3 (1.3-6.7); Neutrophils Percent Auto 61.7 % (45.5-73.1); Platelet Count Result 223 k/mm3 (150-375); Red Blood Count 4.94 M/mm3 (4.2-5.4); Red Cell Distribution Width 13.7 % (11.5-14.5)
[2024-12-07 02:52] LABS: Hemoglobin A1C 6.2 % (<5.7)
[2024-12-07 02:56] LABS: Anion Gap 5 mmol/L (4-12); Blood Urea Nitrogen 9 mg/dL (7-17); Calcium 8.7 mg/dL (8.4-10.2); Carbon Dioxide 29 mmol/L (22-30); Chloride 104 mmol/L (98-107); Estimated Glomerular Filt Rate > 60; Glucose 131 mg/dL (65-110); Potassium 3.3 mmol/L (3.4-5.0); Sodium 138 mmol/L (137-145)
== END 2024-12-07 03:05 | disposition left against medical advice (07) ==
PROVIDERS: Emergency Provider Physician Assistant
DX: B37.0 Candidal stomatitis (principal); L30.4 Erythema intertrigo; R73.03 Prediabetes; Z87.440 Personal history of urinary (tract) infections; F17.210 Nicotine dependence, cigarettes, uncomplicated
CPT/HCPCS: 36415; 80048; 83036; 85025; 99283

== ENCOUNTER 2025-03-09 00:51 | Emergency (ER) | payer OTHER, SELFPAY ==
[2025-03-09 00:55] VITALS: BP 146/70; PULSE 89; RESP 20; TEMP 36.7
--- NOTE | 2025-03-09 02:05 | ED_ITS ---
HPI - Ear Problem General Chief complaint: Ear Stated complaint: uti and ear indection Time Seen by Provider: 03/09/25 01:48 History of Present Illness HPI Narrative: This is a 49-year-old female with no significant past medical history who presents to the ED for multiple complaints. Patient states for the past day, she has been having bilateral ear pain, left greater than right. She has gotten frequent ear infections. Denies fevers, chills. She also notes suprapubic abdominal pressure and feels like a UTI. Denies dysuria, hematuria. Related Data Allergies Allergy/AdvReac Type Severity Reaction Status Date / Time meperidine (From Demerol) Allergy Itching Verified 03/09/25 00:57 morphine Allergy Anaphylactic Verified 03/09/25 00:57 Shock Review of Systems Review of Systems: Gen.: Denies fevers or chills Eyes: Denies eye pain or visual change ENT: Denies congestion Respiratory: Denies shortness of breath or cough CV: Denies chest pain or palpitations GI: as per HPI as per HPI Musculoskeletal: Denies back pain or muscle pain Neuro: Denies numbness, tingling, weakness or focal weakness Skin: Denies rash Except as documented, all other systems reviewed and negative PMFSH Past Medical History Medical History Yeast infection involving the vagina and surrounding area History of UTI No significant past medical history Surgical History Surgical History H/O: Family History Family History Other No significant family history Social History Social History Smoking status: Current every day smoker Tobacco type: cigarettes Alcohol intake: never Substance use: never Other substance usage details: Pt once accused of using meth due to poor dentition at outside hosp; denies Living arrangements: with family Gender identity (if verbalized by the patient): Female Exam Narrative: APPEARANCE: No acute distress, nontoxic, resting in bed HEENT: Normocephalic, atraumatic, OMM. bilateral TMs bulging and erythematous. Pain with movement of the left pinna. RESPIRATORY: No respiratory distress CARDIOVASCULAR: Appears well perfused ABDOMINAL: Nondistended MUSCULOSKELETAl: Moves all extremities. No obvious deformities NEURO: Awake and alert. SKIN:: Warm, dry. No rashes lesions or abrasions PSYCHIATRIC: Normal affect/mood, Course Vital Signs Vital signs: Vital Signs Temperature 98.1 F 03/09/25 00:55 Pulse Rate 89 03/09/25 00:55 Respiratory Rate 20 03/09/25 00:55 Blood Pressure 146/70 H 03/09/25 00:55 Temperature 99 F 03/09/25 02:57 Pulse Rate 75 03/09/25 02:57 Respiratory Rate 20 03/09/25 02:57 Blood Pressure 138/79 03/09/25 02:57 Pulse Oximetry 100 03/09/25 02:57 Medical Decision Making MDM Narrative Medical decision making narrative: 49-year-old female who presented to the ED for ear pain and suprapubic abdominal pain. On initial evaluation, patient was in no acute distress, afebrile, hemodynamically stable. She did have evidence of acute otitis media to bilateral ears as well as otitis externa to the left ear. UA was obtained and did show a UTI. She will be given a prescription for cefdinir as well as ofloxacin. She was advised follow-up with her PCP in the next week for re- evaluation. Patient agreeable to the plan. Given strict return precautions. Differential Diagnosis Differential Diagnosis: AOM, otitis externa, UTI, viral syndrome Medical Records Medical records reviewed: Yes I reviewed the external patient's medical records. Vital Signs Vital Signs: Vital Signs Temperature 98.1 F 03/09/25 00:55 Pulse Rate 89 03/09/25 00:55 Respiratory Rate 20 03/09/25 00:55 Blood Pressure 146/70 H 03/09/25 00:55 Temperature 99 F 03/09/25 02:57 Pulse Rate 75 03/09/25 02:57 Respiratory Rate 20 03/09/25 02:57 Blood Pressure 138/79 03/09/25 02:57 Pulse Oximetry 100 03/09/25 02:57 Lab Data Lab results reviewed: Yes I reviewed the patient's lab results. Labs: Lab Results 03/09/25 03/09/25 Range/Units 02:02 02:05 POC Capillary Glucose 125 H (65-105) mg/dl Urine Color Yellow (Yellow) Urine Appearance Cloudy H (Clear) Urine pH 6.0 (5.0-9.0) Ur Specific [place] 1.017 (1.001-1.035) Urine Protein Negative (Negative) mg/dL Urine Glucose (UA) Negative (Negative) mg/dL Urine Ketones Negative (Negative) mg/dL Ur Blood (Man) Negative (Negative) Urine Nitrate Negative (Negative) Urine Bilirubin Negative (Negative) Urine Urobilinogen 2.0 H (<2.0) mg/dL Leukocyte Esterase Rfl 3+ H (Negative) GENEVIEVE/UL Urine RBC 0-2 (0-2) /hpf Urine WBC >100 H (0-3) /hpf Ur Squamous Epith Cells Few (Few) /hpf Urine Bacteria 1+ H /hpf Urine Casts 0-2 Discharge Plan Discharge Clinical Impression: Otitis externa Qualifiers: Otitis externa type: other infective Chronicity: acute Laterality: left Qualified Code(s): H60.392 - Other infective otitis externa, left ear Otitis media Qualifiers: Otitis media type: other nonsuppurative Chronicity: acute Laterality: bilateral Recurrence: non-recurrent Qualified Code(s): H65.193 - Other acute nonsuppurative otitis media, bilateral UTI (urinary tract infection) Qualifiers: Urinary tract infection type: acute cystitis Hematuria presence: without hematuria Qualified Code(s): N30.00 - Acute cystitis without hematuria Patient Disposition: Home Condition: Stable Instructions: Antibiotic Form Additional Instructions: You have acute otitis media, otitis externa, and a UTI. Your given a prescription for cefdinir which should cover ears and your UTI. We also given ofloxacin, apply this to both ears. Follow-up with your PCP in the next week for re-evaluation. Return to the ED for any new or worsening symptoms. For pain, discomfort or temperature greater than or equal to 100.8 ?F please alternate the following 2 medications as needed. First medication- acetaminophen/Tylenol- 1000mg every 6-8 hours as needed for above indications. Second medication- ibuprofen/Motrin-600mg every 6-8 hours as needed for above indication. Patient Language: French Prescriptions: New cefdinir 300 mg capsule 300 mg PO Q12H Qty: 10 0RF ofloxacin 0.3 % drops 10 drp EACH EAR DAILY 7 Days Qty: 10 0RF No Action clindamycin HCl 300 mg capsule 300 mg PO Q8H Qty: 21 0RF phenazopyridine 100 mg tablet 100 mg PO TID PRN (Reason: pain) 2 Days Qty: 5 0RF Rx Instructions: after meals; patient received first dose in ED 05/02/24 sulfamethoxazole-trimethoprim [Bactrim DS] 800-160 mg tablet 1 tablet PO Q12H 14 Days Qty: 27 0RF Rx Instructions: Received first dose in ED 05/02 AM clotrimazole 1 % cream 1 applic topical BID PRN (Reason: skin irritation) Qty: 15 0RF nystatin 100,000 unit/mL suspension 4 ml PO QID 7 Days Qty: 112 0RF Rx Instructions: swish and swallow amoxicillin-pot clavulanate 875-125 mg tablet 1 tablet PO Q12H Qty: 20 0RF benzonatate 200 mg capsule 200 mg PO TID PRN (Reason: cough) Qty: 21 0RF cefdinir 300 mg capsule 300 mg PO Q12H 10 Days Qty: 20 0RF Follow-up/Referrals: UNKNOWN,DOCTOR [Primary Care Provider]
[2025-03-09 02:22] LABS: Add Urine Microscopic? YES; Appearance Urine Cloudy (Clear); Glucose Urine UA Negative (Negative); Leukocyte Esterase Ur 3+ LEU/UL (Negative); Nitrate Urine Negative (Negative); Non Pathogenic Casts 0-2; Specific Grav Ur 1.017 (1.001-1.035)
[2025-03-09] MEDS: CEFDINIR 300 MG CAPSULE PO (02:54)
[2025-03-09 02:57] VITALS: BP 138/79; PULSE 75; RESP 20; TEMP 37.2; O2SAT 100
== END 2025-03-09 02:58 | disposition home or self-care (01) ==
PROVIDERS: Emergency Provider Student in an Organized Health Care Education/Training Program
DX: H65.193 Other acute nonsuppurative otitis media, bilateral (principal); H60.392 Other infective otitis externa, left ear; N30.00 Acute cystitis without hematuria; F17.210 Nicotine dependence, cigarettes, uncomplicated; Z87.440 Personal history of urinary (tract) infections
CPT/HCPCS: 81001; 82948; 87086; 87186; 99283; A9270